=== PATIENT | male | born 1990 | race Caucasian/White ===

== ENCOUNTER 2018-02-23 08:13 | Emergency (ER) | payer MEDICAID ==
[~2018-02-23] VITALS: Ht 172.7 cm; Wt 67.8 kg
[2018-02-23 08:25] VITALS: BP 120/81
[2018-02-23] MEDS ORDERED: HYDROcodone/APAP 5/325 TABLET ONE (08:53)
[2018-02-23] MEDS ORDERED: METHOCARBAMOL 750 MG TABLET ONE (08:53)
[2018-02-23] MEDS ORDERED: HYDROcodone/APAP 5/325 TABLET PO ONE (09:00)
[2018-02-23] MEDS ORDERED: METHOCARBAMOL 750 MG TABLET PO ONE (09:00)
== END 2018-02-23 10:07 | disposition home or self-care (01) ==
LOC: ED 09:50
DX: S39.012A Strain of muscle, fascia and tendon of lower back, initial encounter (principal); S60.221A Contusion of right hand, initial encounter; W19.XXXA Unspecified fall, initial encounter; Y93.89 Activity, other specified; Y92.009 Unspecified place in unspecified non-institutional (private) residence as the place of occurrence of the external cause; Y99.8 Other external cause status
CPT/HCPCS: 29125; 72110; 99284

== ENCOUNTER 2018-10-07 22:39 | Emergency (ER) | payer MEDICAID ==
[~2018-10-07] VITALS: Ht 172.7 cm; Wt 70.3 kg
[2018-10-07 22:42] VITALS: BP 132/81
[2018-10-07] MEDS ORDERED: DIPH,PERTUSS(ACELL),TET VAC/PF 0.5 ML IM-VACC ONE ×2 (22:59→23:00)
[2018-10-07] MEDS ORDERED: HYDROcodone/APAP 5/325 TABLET ONE (22:59)
[2018-10-07] MEDS ORDERED: HYDROcodone/APAP 5/325 TABLET PO PRN (23:00)
== END 2018-10-08 00:02 | disposition home or self-care (01) ==
LOC: ED 23:58
DX: S60.512A Abrasion of left hand, initial encounter (principal); X58.XXXA Exposure to other specified factors, initial encounter; Y93.89 Activity, other specified; Y92.89 Other specified places as the place of occurrence of the external cause; Y99.0 Civilian activity done for income or pay
CPT/HCPCS: 90471; 90715

== ENCOUNTER 2018-10-13 23:39 | Emergency (ER) | payer MEDICAID ==
[~2018-10-13] VITALS: Ht 172.7 cm; Wt 69.4 kg
[2018-10-14] MEDS ORDERED: HYDROcodone/APAP 5/325 TABLET PO ONE (01:00)
[2018-10-14] MEDS ORDERED: HYDROcodone/APAP 5/325 TABLET ONE (01:03)
--- NOTE | 2018-10-14 01:13 | NUR ---
PT. MEDICATED PER JUN.
--- NOTE | 2018-10-14 01:35 | NUR ---
WOUND CLEANSED AND PA BACK IN TO EVALUATE.
[2018-10-14] MEDS ORDERED: NEOSPORIN OINT. PKT 1 PACKET ONE (01:38)
[2018-10-14] MEDS ORDERED: NEOSPORIN OINT. PKT 1 PACKET TP STA (01:38)
--- NOTE | 2018-10-14 01:46 | NUR ---
OINTMENT AND BANDAID PLACED PER ORDER.
[2018-10-14 01:49] VITALS: BP 112/66
== END 2018-10-14 01:57 | disposition home or self-care (01) ==
LOC: ED 10-14 01:00
DX: S61.412A Laceration without foreign body of left hand, initial encounter (principal); W01.0XXA Fall on same level from slipping, tripping and stumbling without subsequent striking against object, initial encounter; Y93.89 Activity, other specified; Y92.009 Unspecified place in unspecified non-institutional (private) residence as the place of occurrence of the external cause; Y99.8 Other external cause status
CPT/HCPCS: 99283